=== PATIENT | male | born 1975 | race Caucasian/White ===

== ENCOUNTER 2023-12-17 08:00 | Day surgery (SDC) | payer OTHER ==
[~2023-12-17 08:00] MED LIST: Lactated Ringers 1,000 ML IV SCH
[2023-12-17] MEDS ORDERED: propofoL 50 ML ONE (09:20)
== END 2023-12-17 11:20 | disposition home or self-care (01) ==
LOC: MW.SDS 08:00
PROVIDERS: ATTEND Surgery
DX: D12.3 Benign neoplasm of transverse colon (principal); K62.1 Rectal polyp; E78.5 Hyperlipidemia, unspecified; K57.30 Diverticulosis of large intestine without perforation or abscess without bleeding; G47.33 Obstructive sleep apnea (adult) (pediatric); Z80.0 Family history of malignant neoplasm of digestive organs; Z83.719 Family history of colon polyps, unspecified; Z79.899 Other long term (current) drug therapy
CPT/HCPCS: 45380; J2704; J7120; 00811